=== PATIENT | female | born 1960 | race African-American/Black ===

== ENCOUNTER 2021-01-23 18:57 | Inpatient (IN) | payer SELFPAY ==
[~2021-01-23] VITALS: Ht 152.4 cm; Wt 90.9 kg
--- NOTE | 2021-01-23 19:42 | REP ---
INDICATION: sob COMPARISON: None. TECHNIQUE: Portable AP view of the chest FINDINGS: The mediastinum and cardiac silhouette are stable and within normal limits for portable technique. The lung weber are clear without focal consolidation, effusion, or pneumothorax. Skeletal structures are intact. IMPRESSION: No acute cardiopulmonary process appreciated. <Electronically signed by Chucky Lantigua > 01/23/21 193
[2021-01-23 19:59] LABS: BASO % 0.4 % (0.0-1.0); EOS % 0.7 % (0.0-3.0); HEMATOCRIT 38.3 % (36.0-47.0); LYMPH # 1.2 10^3/uL (1.5-5.0); LYMPH % 21.2 % (24.0-44.0); MEAN CORPUSCULAR HEMOGLOBIN 25.6 pg (27.0-33.0); MEAN CORPUSCULAR HGB CONC 33.9 g/dl (32.0-36.5); MEAN CORPUSCULAR VOLUME 75.5 fl (80.0-96.0); MONO # 0.3 10^3/uL (0.0-0.8); MONO % 5.2 % (2.0-8.0); NEUTROPHILS # 4.1 10^3/uL (1.5-8.5); NEUTROPHILS % 72.3 % (36.0-66.0); PLATELET COUNT, AUTOMATED 164 10^3/uL (150-450); RED BLOOD COUNT 5.07 10^6/uL (4.00-5.40); WHITE BLOOD COUNT 5.6 10^3/uL (4.0-10.0)
[2021-01-23 20:28] LABS: MB/CK RELATIVE INDEX 3.16 (< OR =4)
[2021-01-23 20:35] LABS: RSV AMPLIFICATION NEGATIVE (NEGATIVE)
[2021-01-23 20:51] LABS: ALBUMIN 3.7 GM/DL (3.2-5.2); ALT/SGPT 40 U/L (12-78); BILIRUBIN,TOTAL 1.4 MG/DL (0.2-1.0); BLOOD UREA NITROGEN 17 MG/DL (7-18); CALCIUM LEVEL 9.1 MG/DL (8.8-10.2); CARBON DIOXIDE LEVEL 27 MEQ/L (21-32); CHLORIDE LEVEL 108 MEQ/L (98-107); CREATININE FOR GFR 0.97 MG/DL (0.55-1.30); GLOMERULAR FILTRATION RATE > 60.0 (>45); GLUCOSE, FASTING 204 MG/DL (70-100); MAGNESIUM LEVEL 2.2 MG/DL (1.8-2.4); POTASSIUM SERUM 4.1 MEQ/L (3.5-5.1); SODIUM LEVEL 142 MEQ/L (136-145); TOTAL PROTEIN 6.6 GM/DL (6.4-8.2)
[2021-01-23] MEDS ORDERED: ASPIRIN 81 MG CHEW TABLET PO ONE (21:20)
[2021-01-23] MEDS ORDERED: NS 1,000 ML IV ONE (21:40)
[2021-01-23 22:09] LABS: CK-MB VALUE MASS 3.1 NG/ML (<3.6); MB/CK RELATIVE INDEX 3.07 (< OR =4)
[2021-01-23 22:15] LABS: NT-PRO BNP 5533 PG/ML (<125)
[2021-01-23] MEDS ORDERED: ISOVUE-370 76% 100ML VIAL As Ordered ONE (22:19)
--- NOTE | 2021-01-23 22:58 | REPVR ---
PROCEDURE INFORMATION: Exam: CTA Chest With Contrast Exam date and time: 01/23/2021 10:23 PM Age: 60 years old Clinical indication: Other: Chest pain, SOB, rule out pe TECHNIQUE: Imaging protocol: Computed tomographic angiography of the chest with contrast. 3D rendering (Not supervised by radiologist): MIP and/or 3D reconstructed images were created by the technologist. Radiation optimization: All CT scans at this facility use at least one of these dose optimization techniques: automated exposure control; mA and/or kV adjustment per patient size (includes targeted exams where dose is matched to clinical indication); or iterative reconstruction. Contrast material: ISOVUE 370; Contrast volume: 75 ml; Contrast route: INTRAVENOUS (IV); COMPARISON: CR Chest, 1 view 2021-01-23 19:31 FINDINGS: Pulmonary arteries: No filling defects in the pulmonary arteries to suggest pulmonary emboli. Aorta: Unremarkable. No aortic aneurysm. No aortic dissection. Lungs: Mild interstitial pulmonary edema. Pleural spaces: Moderate right and small left pleural effusion. Heart: Moderate cardiomegaly. Right cardiac dysfunction with contrast refluxing into the hepatic veins. Lymph nodes: Unremarkable. No enlarged lymph nodes. Bones/joints: Unremarkable. No acute fracture. Soft tissues: Unremarkable. IMPRESSION: 1. Moderate cardiomegaly. 2. Moderate right and small left pleural effusion. Mild interstitial pulmonary edema. 3. No filling defects in the pulmonary arteries to suggest pulmonary emboli. Electronically signed by: Dario Valle On 01/23/2021 22:58:12 PM
[2021-01-23] MEDS ORDERED: FUROSEMIDE 40MG/4ML VIAL (J1940) IV ONE (23:20)
[2021-01-23] MEDS ORDERED: HOME MED LIST COMPLETE! XX SCH (23:25)
--- NOTE | 2021-01-24 00:27 | HPEPDOC ---
[facility] Medical History & Physical Date of Admission Jan 24, 2021 Date of Service: Jan 24, 2021 History and Physical CHIEF COMPLAINT: Shortness of breath HISTORY OF PRESENT ILLNESS: 60-year-old female who denies having any past medical history presents due to progressively worsening shortness of breath as well as an associated cough. Tells me the nonproductive cough is chronic is unchanged for years. Endorses her shortness of breath has been worsening she requires 2 pillows to go to sleep she is short of breath on exertion and when lying flat. She describes a "nagging discomfort"in her chest but only when she lays down that is when she becomes short of breath. A few moments after sitting upright she feels like she can catch her breath and her nagging chest discomfort goes away. She denies having chest pain at any point. Denies having a headache. Denies any fevers or chills denies having nausea or vomiting or abdominal pain. Endorses having lower extremity swelling that's been worsening lately especially when she sits down with her legs hanging from a chair for a while. In the emergency department BNP was elevated 5533. Her troponins were also elevated. The ED discussed with Dr. Harper thinks this is likely demand ischemia from the fluid overload and advises against starting heparin drip and advised admitting for diureses. EKG was reviewed no STEMI. No obvious ST changes. Patient will be be admitted for further medical workup and management. PAST MEDICAL/SURGICAL HISTORY: Patient denies having any prior medical problems she endorses a history of C- section SOCIAL HISTORY: Denies alcohol use Denies tobacco use Denies illicit drug use FAMILY HISTORY: Mother has a history of hypertension. Father has a history of diabetes ALLERGIES: Please see below. REVIEW OF SYSTEMS: 10 point review of systems complete all negative otherwise stated in HPI HOME MEDICATIONS: Please see below. PHYSICAL EXAMINATION: Constitutional: Awake and alert, in no apparent distress ENT: Sclera are clear. Mucosa is moist. Respiratory: Lungs faint crackles at the bases bilaterally. No respiratory distress. Cardiovascular: Regular rate and rhythm Gastrointestinal: Abdomen is soft, non distended, non tender, BS present. Musculoskeletal: 1+ bilateral pitting lower extremity edema. Neurologic: No focal neurological deficit. Mental Status: A&O x3, normal affect Skin: No visible rashes LABORATORY DATA: See below. IMAGING: See chart MICROBIOLOGY: Please see below. ASSESSMENT/PLAN 60-year-old female presents with shortness of breath likely has undiagnosed congestive heart failure admitted for further medical workup. # Shortness of breath: Fluid overloaded likely 2/2 undiagnosed congestive heart failure. Initial BNP 5533. Started patient on 20 IV Lasix twice a day. Ordered 2-D echo. Low-salt diet. # Elevated troponin: Dr. Clifford discussed the case with residential mortgage manager on-call doctor Meredith who believes this is type II NV secondary to fluid overload and suspected congestive heart failure. Recommended against starting a heparin drip. Recommended treating the underlying fluid overload. Patient denies having any chest pain at any point. Repeat troponin in AM. # Elevated blood pressure without diagnosis of hypertension: Initially blood pressure 157/92. At bedside blood pressure had improved to 134/85. No need for antihypertensive medications at this time. Continue to monitor blood pressure. Recommended patient undergo lifestyle modifications and follow up with her primary care physician. # Elevated blood glucose without a prior diagnosis of diabetes: Obtain A1c. Insulin sliding scale. Frequent Accu-Cheks. Hypoglycemic precautions. # DVT prophylaxis: Lovenox A [facility] Hospitalist Vital Signs Vital Signs Date Time Temp Pulse Resp B/P (MAP) Pulse Ox O2 Delivery O2 Flow Rate FiO2 01/23/21 18:58 96.5 74 18 157/92 (113) 96 Room Air Laboratory Data Labs 24H Laboratory Tests 2 01/23/21 19:38: Immature Granulocyte % (Auto) 0.2, Neutrophils (%) (Auto) 72.3H, Lymphocytes (%) (Auto) 21.2L, Monocytes (%) (Auto) 5.2, Eosinophils (%) (Auto) 0.7, Basophils (%) (Auto) 0.4, Neutrophils # (Auto) 4.1, Lymphocytes # (Auto) 1.2L, Monocytes # (Auto) 0.3, Eosinophils # (Auto) 0.0, Basophils # (Auto) 0.0, Nucleated Red Blood Cells % (auto) 0.0, Anion Gap 7L, Glomerular Filtration Rate > 60.0, Calcium Level 9.1, Magnesium Level 2.2, Total Bilirubin 1.4H, Aspartate Amino Transf (AST/SGOT) 32, Alanine Aminotransferase (ALT/SGPT) 40, Alkaline Phosphatase 58, Total Creatine Kinase 95, Creatine Kinase MB 3.0, Creatine Kinase MB Relative Index 3.16, Troponin I High Sensitivity 35.0, NK-Wvk-[id number]-Type Natriuretic Peptide 5533H, Total Protein 6.6, Albumin 3.7, Albumin/Globulin Ratio 1.3, Coronavirus (COVID-19)(PCR) NEGATIVE, Influenza Type A (RT-PCR) NEGATIVE, Influenza Type B (RT-PCR) NEGATIVE, Respiratory Syncytial Virus (PCR) NEGATIVE 01/23/21 21:23: Total Creatine Kinase 101, Creatine Kinase MB 3.1, Creatine Kinase MB Relative Index 3.07, Troponin I High Sensitivity 52.0 01/23/21 22:42: Troponin I High Sensitivity 55.0H CBC/BMP Laboratory Tests 01/23/21 19:38 Home Medications No Active Prescriptions or Reported Meds Allergies Coded Allergies: No Known Allergies (Unverified , 01/23/21) SHREYA PATTON MD Jan 24, 2021 00:27
[2021-01-24] MEDS ORDERED: ACETAMINOPHEN TAB 650MG DOSE (2X325MG) PO PRN (00:35)
[2021-01-24] MEDS ORDERED: MOM 30ML SUSPENSION UDC PO PRN (00:35)
[2021-01-24] MEDS ORDERED: DEXTROSE 50% 50 ML SYRINGE IV PRN (00:45)
[2021-01-24] MEDS ORDERED: GLUCAGON INJ 1MG VIAL SC PRN (00:45)
[2021-01-24] MEDS ORDERED: GLUCOSE 4GM CHEW TABLET PO PRN (00:45)
[2021-01-24 06:41] LABS: HEMATOCRIT 36.5 % (36.0-47.0); HEMOGLOBIN 12.7 g/dl (12.0-15.5); MEAN CORPUSCULAR HEMOGLOBIN 25.8 pg (27.0-33.0); MEAN CORPUSCULAR HGB CONC 34.8 g/dl (32.0-36.5); PLATELET COUNT, AUTOMATED 153 10^3/uL (150-450); RED BLOOD COUNT 4.93 10^6/uL (4.00-5.40); WHITE BLOOD COUNT 5.1 10^3/uL (4.0-10.0)
[2021-01-24 07:08] LABS: ALBUMIN 3.7 GM/DL (3.2-5.2); ALT/SGPT 38 U/L (12-78); BILIRUBIN,TOTAL 1.5 MG/DL (0.2-1.0); BLOOD UREA NITROGEN 16 MG/DL (7-18); CALCIUM LEVEL 8.7 MG/DL (8.8-10.2); CARBON DIOXIDE LEVEL 26 MEQ/L (21-32); CHLORIDE LEVEL 107 MEQ/L (98-107); CHOLESTEROL LEVEL 201 MG/DL (<200); CHOLESTEROL RISK RATIO 3.241 (<5); CREATININE FOR GFR 0.89 MG/DL (0.55-1.30); GLOMERULAR FILTRATION RATE > 60.0 (>45); GLUCOSE, FASTING 98 MG/DL (70-100); HDL CHOLESTEROL 62 MG/DL (>40); LDL CHOLESTEROL 124 MG/DL (<100); NON-HDL-C 139 MG/DL; SODIUM LEVEL 142 MEQ/L (136-145); TOTAL PROTEIN 6.7 GM/DL (6.4-8.2); TRIGLYCERIDES LEVEL 77 MG/DL (<150)
[2021-01-24] MEDS: HumaLOG INSULIN (NovoLOG) PER UNIT SC SCH ×2 (07:28→12:00)
[2021-01-24 08:48] VITALS: BP 118/84
[2021-01-24] MEDS ORDERED: FUROSEMIDE 40MG/4ML VIAL (J1940) IV SCH (09:00)
[2021-01-24] MEDS ORDERED: ENOXAPARIN 40MG/0.4ML SYRINGE (J1650 PER 10MG) SC SCH (09:00)
[2021-01-24] MEDS ORDERED: FUROSEMIDE 20MG/2ML VIAL (J1940) IV SCH (09:00)
[2021-01-24 10:46] LABS: HEMOGLOBIN A1c 5.7 %
[2021-01-24] MEDS ORDERED: LISI2.5T9 PO (11:39)
[2021-01-24] MEDS ORDERED: LASI40TA9 PO (11:39)
--- NOTE | 2021-01-24 11:40 | DS.PDOC ---
Discharge Summary General Date of Admission Jan 24, 2021 at 00:34 Date of Discharge 01/24/21 Discharge Summary PROCEDURES PERFORMED DURING STAY: [None]. DISCHARGE DIAGNOSES: Acute congestive heart failure COMPLICATIONS/CHIEF COMPLAINT: Chf,Hyperglycemia,Hypertension. HOSPITAL COURSE: 60-year-old female visiting from [place] with no past medical history presented to the ED for progressively worsening shortness of breath as well as an associated cough. Tells me the nonproductive cough is chronic is unchanged for years. Endorses her shortness of breath has been worsening she requires 2 pillows to go to sleep she is short of breath on exertion and when lying flat. This has been going on for several weeks. She describes a "nagging discomfort"in her chest but only when she lays down that is when she becomes short of breath. A few moments after sitting upright she feels like she can catch her breath and her nagging chest discomfort goes away. CTA was negative for pulmonary embolism but showed interstitial edema suggestive of acute CHF. Acute CHF We will start the patient on diuretics, lisinopril. Echo has been done report to be followed up Will need referral to cardiology from primary care physician Elevated troponin Due to demand ischemia No signs of acute ischemia on EKG Elevated blood glucose at 201 presentation We will check A1c DISCHARGE MEDICATIONS: Please see below. ALLERGIES: Please see below. PHYSICAL EXAMINATION ON DISCHARGE: VITAL SIGNS: Please see below. Constitutional: Awake and alert, in no apparent distress ENT: Sclera are clear. Mucosa is moist. Respiratory: Chest clear to auscultation Cardiovascular: Regular rate and rhythm Gastrointestinal: Abdomen is soft, non distended, non tender, BS present. Musculoskeletal: No edema Neurologic: No focal neurological deficit. Mental Status: A&O x3, normal affect Skin: No visible rashes LABORATORY DATA: Please see below. IMAGING: CT angio of chest Pulmonary arteries: No filling defects in the pulmonary arteries to suggest pulmonary emboli. Aorta: Unremarkable. No aortic aneurysm. No aortic dissection. Lungs: Mild interstitial pulmonary edema. Pleural spaces: Moderate right and small left pleural effusion. Heart: Moderate cardiomegaly. Right cardiac dysfunction with contrast refluxing into the hepatic veins. Lymph nodes: Unremarkable. No enlarged lymph nodes. Bones/joints: Unremarkable. No acute fracture. Soft tissues: Unremarkable. IMPRESSION: 1. Moderate cardiomegaly. 2. Moderate right and small left pleural effusion. Mild interstitial pulmonary edema. 3. No filling defects in the pulmonary arteries to suggest pulmonary emboli. ACTIVITY: [As tolerated]. DIET: 2 g sodium diet fluid restriction 1.8 L DISCHARGE PLAN: Home DISCHARGE INSTRUCTIONS: PMD in 2-week ITEMS TO FOLLOWUP ON ON OUTPATIENT: Follow-up echo results DISCHARGE CONDITION: [Stable]. TIME SPENT ON DISCHARGE: 35 minutes. Vital Signs/I&Os Vital Signs Date Time Temp Pulse Resp B/P (MAP) Pulse Ox O2 Delivery O2 Flow Rate FiO2 01/24/21 08:48 97.2 95 16 118/84 (95) 94 Room Air I&O- Last 24 Hours up to 6 AM 01/24/21 06:00 Intake Total 1000 ml Balance 1000 ml Laboratory Data Labs 24H Laboratory Tests 2 01/23/21 19:38: Immature Granulocyte % (Auto) 0.2, Neutrophils (%) (Auto) 72.3H, Lymphocytes (%) (Auto) 21.2L, Monocytes (%) (Auto) 5.2, Eosinophils (%) (Auto) 0.7, Basophils (%) (Auto) 0.4, Neutrophils # (Auto) 4.1, Lymphocytes # (Auto) 1.2L, Monocytes # (Auto) 0.3, Eosinophils # (Auto) 0.0, Basophils # (Auto) 0.0, Nucleated Red Blood Cells % (auto) 0.0, Anion Gap 7L, Glomerular Filtration Rate > 60.0, Calcium Level 9.1, Magnesium Level 2.2, Total Bilirubin 1.4H, Aspartate Amino Transf (AST/SGOT) 32, Alanine Aminotransferase (ALT/SGPT) 40, Alkaline Phosphatase 58, Total Creatine Kinase 95, Creatine Kinase MB 3.0, Creatine Kinase MB Relative Index 3.16, Troponin I High Sensitivity 35.0, YW-Tol-I-Type Natriuretic Peptide 5533H, Total Protein 6.6, Albumin 3.7, Albumin/Globulin Ratio 1.3, Coronavirus (COVID-19)(PCR) NEGATIVE, Influenza Type A (RT-PCR) NEGATIVE, Influenza Type B (RT-PCR) NEGATIVE, Respiratory Syncytial Virus (PCR) NEGATIVE 01/23/21 21:23: Total Creatine Kinase 101, Creatine Kinase MB 3.1, Creatine Kinase MB Relative Index 3.07, Troponin I High Sensitivity 52.0 01/23/21 22:42: Troponin I High Sensitivity 55.0H 01/24/21 06:13: Nucleated Red Blood Cells % (auto) 0.0, Anion Gap 9, Glomerular Filtration Rate > 60.0, Calcium Level 8.7L, Total Bilirubin 1.5H, Aspartate Amino Transf (AST/SGOT) 23, Alanine Aminotransferase (ALT/SGPT) 38, Alkaline Phosphatase 59, Troponin I High Sensitivity 66.0H, Total Protein 6.7, Albumin 3.7, Albumin/Globulin Ratio 1.2, Triglycerides Level 77, Total Cholesterol 201H, LDL Cholesterol 124H, Non-HDL Cholesterol (LDL + VLDL) 139, Total HDL Cholesterol 62, Cholesterol/HDL Ratio 3.241 CBC/BMP Laboratory Tests 01/23/21 19:38 01/24/21 06:13 Discharge Medications Scheduled Furosemide (Lasix) 40 Mg Tablet, 1 TAB PO DAILY Lisinopril (Lisinopril) 2.5 Mg Tablet, 1 TAB PO DAILY Allergies Coded Allergies: No Known Allergies (Unverified , 01/23/21) Ivon Patrick MD Jan 24, 2021 09:17
--- NOTE | 2021-01-24 19:07 | ECGEPIP ---
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: ABRHAAM : 1960 Requested By: JENNIFER Vasquez Order Number: [id number] Reading MD: Trupti Reynaga Measurements Intervals [place] Rate: 97 P: 56 [place]: 184 QRS: -38 QRSD: 124 T: 108 QT: 386 QTc: 490 Interpretive Statements Sinus rhythm with frequent and consecutive premature ventricular complexes Left atrial enlargement Left axis deviation Left ventricular hypertrophy with QRS widening and repolarization abnormality ( R in aVL , Sokolow-Fields , [place] product , Romhilt-Mccabe ) NSTTW abnormalities prolonged qtc No prior Electronically Signed on 01-24-2021 19:06:36 EST by Trupti Reynaga
--- NOTE | 2021-01-24 19:07 | ECGEPIP ---
[facility] - ED Test Date: 2021-01-23 Pat Name: QUINTIN PERSAUD Department: Room: [place] [address] Gender: Female Crew Attendant: Pedro KNUTSON : 1960 Requested By: JENNIFER Vasquez Order Number: [id number] Reading MD: Trupti Reynaga Measurements Intervals [place] Rate: 94 P: 44 DC: 186 QRS: -39 QRSD: 118 T: 101 QT: 382 QTc: 477 Interpretive Statements sinus rhythm PVCs Left axis deviation Left ventricular hypertrophy with QRS widening and repolarization abnormality ( R in aVL , [place] product , Romhilt-Mccabe ) prolonged qtc NSTTW abnormalities similar 01/23/21 Electronically Signed on 01-24-2021 19:07:32 EST by Trupti Reynaga
[2021-01-24] MEDS ORDERED: HumaLOG INSULIN (NovoLOG) PER UNIT SC SCH (21:00)
--- NOTE | 2021-01-24 22:19 | ECHO ---
ECHOCARDIOGRAM DATE OF PROCEDURE: 01/24/2021 Age: 60 Gender: Female Height: 152 cm Weight: 91 kg REFERRING PHYSICIAN: Dr. Alex Parks INDICATION: Congestive heart failure MEASUREMENTS: IVS 1.1 cm LV 6.6 cm LVPW 0.9 cm LA 3.8 cm Aorta 2.9 cm Left atrial volume index 62 FINDINGS: This study is of acceptable technical quality. Underlying sinus rhythm with wide QRS complex and frequent ventricular ectopy. Left ventricle is dilated and globally hypokinetic. I estimate LVEF approximately 25-30%. Right ventricle appears grossly normal size. Left atrium is severely enlarged. Right atrium appears at least mildly enlarged. Aortic valve is tricuspid, it has normal mobility and no structural abnormalities by 2D imaging. Mitral and tricuspid valves appear normal. Pulmonic valve was poorly visualized, but grossly appears normal. No pericardial effusion is noted. Inferior vena cava is poorly seen. Aortic root is normal. Aortic arch and abdominal aorta also appear grossly normal. Doppler interrogation of the aortic valve reveals no significant stenosis or insufficiency. There is approximately mild to moderate mitral insufficiency and mild tricuspid insufficiency. Unfortunately quality of TR jet was not sufficient to estimate pulmonary artery pressure. Pulmonic valve exhibits trace insufficiency. Evaluation of diastolic function is inconclusive due to summation pattern on mitral inflow with fusion of mitral E wave and A wave. CONCLUSIONS: 1. Study is of acceptable technical quality, underlying sinus rhythm with wide QRS complex and frequent ventricular ectopy. 2. Dilated globally hypokinetic left ventricle with estimated LVEF 25%-30%. 3. No hemodynamically significant valvular disease. 4. Unable to estimate central venous pressure or pulmonary artery pressure. COMMENT: Study favors nonischemic versus ischemic artery myopathy, but certainly both diagnosis need to remain in differential diagnosis.
== END 2021-01-24 13:00 | disposition home or self-care (01) | DRG 194 ==
LOC: M ED 18:57 → M ED INP 01-24 00:34 → ENRESERV 01-24 01:00 → M MSPAV 01-24 01:34
PROVIDERS: ADMIT Family Medicine; ATTEND Internal Medicine Nephrology
DX: I50.9 Heart failure, unspecified (principal); I24.8 Other forms of acute ischemic heart disease; R03.0 Elevated blood-pressure reading, without diagnosis of hypertension; R73.9 Hyperglycemia, unspecified; Z20.822 Contact with and (suspected) exposure to COVID-19

== ENCOUNTER → 2021-03-08 | Outpatient (REF) | payer OTHER ==
[~2021-03-08] MED LIST: LASI40TA9 PO; LISI2.5T9 PO
== END ==
LOC: M SFHCPLAZ 11:06
PROVIDERS: ATTEND Family Medicine
DX: I10 Essential (primary) hypertension (principal); Z53.8 Procedure and treatment not carried out for other reasons